=== PATIENT | male | born 1965 | race Caucasian/White ===

== ENCOUNTER 2021-07-04 16:09 | Outpatient (CLI) | payer OTHER ==
[2021-07-04 16:27] LABS: Potassium 4.9 mmol/L (3.5-5.1)
== END 2021-07-04 16:10 | disposition home or self-care (01) ==
LOC: NAV LABSP 16:09
PROVIDERS: ATTEND Nurse Practitioner Adult Health
DX: E87.5 Hyperkalemia (principal)
CPT/HCPCS: 84132